=== PATIENT | female | born 1980 | race Caucasian/White ===

== ENCOUNTER → 2017-07-21 | Outpatient (CLI) | payer BC | LOC: COL.LAB 16:09 | DX: R07.89 Other chest pain (principal); R03.0 Elevated blood-pressure reading, without diagnosis of hypertension ==

== ENCOUNTER 2018-04-20 08:31 | Emergency (ER) | payer OTHER, BC ==
[~2018-04-20] VITALS: Ht 160 cm; Wt 72.7 kg
[2018-04-20 08:34] VITALS: TEMP 98.4
[2018-04-20] MEDS ORDERED: CYMBALTA 30MG30 MG PO (08:53)
[2018-04-20] MEDS ORDERED: FLEXERIL 1010 MG/TAB PO (08:54)
[2018-04-20] MEDS ORDERED: MAXALT10 MG PO (08:54)
[2018-04-20] MEDS ORDERED: VITAMINC1000TA PO (08:55)
[2018-04-20] MEDS ORDERED: FERROUSAL325 MG PO (08:56)
[2018-04-20] MEDS ORDERED: MULTIPLE VITAMI1 CAP PO (08:56)
[2018-04-20] MEDS ORDERED: PROBIOTIC-MAJOR PO (08:56)
[2018-04-20] MEDS ORDERED: ABILIFY5 MG PO (08:57)
[2018-04-20] MEDS ORDERED: BUSPAR10 MG PO (08:57)
[2018-04-20] MEDS ORDERED: ADIPEX-P37.5 MG PO (08:57)
[2018-04-20] MEDS ORDERED: ESTROVEN MAX400 MCG PO (08:57)
[2018-04-20] MEDS ORDERED: BACTRIM DS 8001 TAB PO (08:57)
[2018-04-20] MEDS ORDERED: HCTZ 25MG TAB25 MG PO (08:58)
[2018-04-20] MEDS ORDERED: FLONASEALLERGY NS (08:58)
[2018-04-20] MEDS ORDERED: TOPAMAX 25MG25 M1 PO (08:58)
[2018-04-20 09:32] VITALS: BP 129/65; PULSE 70
== END 2018-04-20 09:33 | disposition home or self-care (01) ==
LOC: COL.ER 08:31
DX: S46.911A Strain of unspecified muscle, fascia and tendon at shoulder and upper arm level, right arm, initial encounter (principal); I10 Essential (primary) hypertension; F41.9 Anxiety disorder, unspecified; F32.9 Major depressive disorder, single episode, unspecified; Z79.51 Long term (current) use of inhaled steroids; V43.92XA Unspecified car occupant injured in collision with other type car in traffic accident, initial encounter

== ENCOUNTER 2019-03-02 15:24 | Outpatient (RCR) | payer OTHER ==
[~2019-03-02 15:24] MED LIST: ABILIFY5 MG PO; ADIPEX-P37.5 MG PO; BACTRIM DS 8001 TAB PO; BUSPAR10 MG PO; CYMBALTA 30MG30 MG PO; ESTROVEN MAX400 MCG PO; FERROUSAL325 MG PO; FLEXERIL 1010 MG/TAB PO; FLONASEALLERGY NS; HCTZ 25MG TAB25 MG PO; MAXALT10 MG PO; MULTIPLE VITAMI1 CAP PO; PROBIOTIC-MAJOR PO; TOPAMAX 25MG25 M1 PO; VITAMINC1000TA PO
== END 2019-03-22 15:47 ==
LOC: WSOH 15:24
DX: S80.01XD Contusion of right knee, subsequent encounter (principal); W01.0XXD Fall on same level from slipping, tripping and stumbling without subsequent striking against object, subsequent encounter
CPT/HCPCS: G0283-GP